=== PATIENT | female | born 1985 | race Caucasian/White ===

== ENCOUNTER 2019-12-01 14:08 | Emergency (ER) | payer MEDICARE, MEDICAID ==
[~2019-12-01] VITALS: Ht 152.4 cm; Wt 61.2 kg
--- NOTE | ~2019-12-01 | PROC ---
[address] [address] PROCEDURE REPORT Name: NALINI GUZMAN Room: [facility] Crow#: [id number] Admission: 12/01/19 Attend Phys: Discharge: 12/01/19 Date of : 87 Report #: [id number] THIS REPORT FOR: //name// cc: FAM - No family physician/PCP FAM - No family physician/PCP ~ THIS REPORT FOR: //name// For GI report, please see the Provation report in Perceptive 7 content. By: 0650Medical Records Staff KYUNG /MARISSA
[~2019-12-01 14:08] MED LIST: ALLERGEN EAR DR15 M1 OT; CLARITIN10 MG PO; DIFLUCAN150 MG PO; FLEXERIL PO; HYDROCODONE-AP1 EACH PO; IBUPROFEN 800800 M1 PO; LIORESAL 10 MG10 MG PO; MOBIC15 MG PO; MUCINEX D TABL1 EACH PO; MULTIVITAMINS; OMEPRAZOLE; PERCOCET 10-321 EACH; PROTONIX PO; PROTONIX40 M4 PO; QUASENSE1 EACH PO; TERAZOL 745 GM VG; VALIUM5 MG; XANAX 0.5 MG0.5 MG PO; XANAX XR0.5 MG; XANAX XR1 MG PO; ZPAK PO
[2019-12-01] MEDS ORDERED: PROPRANOLOL 1010 MG PO (14:22)
[2019-12-01] MEDS ORDERED: VALIUM5 MG PO (14:23)
[2019-12-01 14:48] LABS: ABSOLUTE BASOPHILS 0.1 thou/uL (0.0-0.2); ABSOLUTE EOSINOPHILS 0.2 thou/uL (0.0-0.7); ABSOLUTE LYMPHOCYTES 3.5 thou/uL (0.8-5.3); ABSOLUTE MONOCYTES 0.6 thou/uL (0.0-1.2); ABSOLUTE NEUTROPHILS 5.8 thou/uL (1.6-8.1); EOSINOPHILS 1.6 %; HEMATOCRIT 41.9 % (37.0-47.0); HEMOGLOBIN 14.3 gm/dL (12.0-15.0); LYMPHOCYTES 34.8 %; MCH 33.1 pg (26.0-34.0); MCHC 34.2 g/dL (28.0-37.0); MCV 96.8 fL (80.0-100.0); MONOCYTES 6.2 %; MPV 9.6 fl. (7.2-11.1); NUCLEATED RBCS 0 /100WBC; PLATELET COUNT* 319 thou/uL (150-400); POLYS 56.4 %; RBC 4.32 mil/uL (4.20-5.00); RDW-CV 13.1 % (10.5-14.5); WBC 10.2 thou/uL (4.0-11.0)
[2019-12-01 14:58] LABS: CALCIUM 8.2 mg/dL (8.5-10.1); CREATININE 1.2 mg/dL (0.6-1.3); POTASSIUM 3.6 mmol/L (3.5-5.1)
[2019-12-01 15:03] LABS: ALBUMIN 3.7 g/dL (3.4-5.0); TOTAL BILIRUBIN 0.4 mg/dL (<0.1-1.0); TOTAL PROTEIN 7.7 g/dL (6.4-8.2)
[2019-12-01 16:41] VITALS: BP 145/78
--- NOTE | 2019-12-02 09:31 | EKG ---
[place] [address] ELECTROCARDIOGRAM REPORT Name: NALINI GUZMAN Room: [facility]#: [id number] Admission: 12/01/19 Attend Phys: Discharge: 12/01/19 Date of : 87 Date of Service: 12/01/19 1429 Report #: [id number] THIS REPORT FOR: //name// [facility] ED Test Date: 2019-12-01 Test Time: 14:29:07 Pat Name: NALINI GUZMAN Department: Room: Gender: Room Service Supervisor: ZARI : 1985 Requested By: Stephen Levy Order Number: [id number] MD: Luis E Quevedo Measurements Intervals [place] Rate: 88 P: 50 NH: 118 QRS: 40 QRSD: 96 T: 15 QT: 385 QTc: 466 Interpretive Statements Sinus rhythm Borderline short NH interval Baseline wander in lead(s) V5 No previous ECG available for comparison Electronically Signed On 12-02-2019 9:31:21 CDT by Luis E Quevedo [email or web address] <ELECTRONICALLY SIGNED> By: Luis E Quevedo MD, [facility] 12/02/19 0931 1429 142 Luis E Quevedo MD, [facility] /EPI
--- NOTE | 2019-12-03 13:08 | PATH ---
[facility] [address] [place] [address] PATHOLOGY RPT PROCEDURE Name: NALINI GUZMAN Room: [facility] Crow#: [id number] Admission: 12/01/19 Date of : 87 Discharge: 12/01/19 Report #: [id number] Path Case #: [id number] [facility] Accession Number: [id number] . 01 Material submitted: . PART A: esophagus - ESOPHAGEAL BIOPSY AT 33CM FOR "ECTASIA". Modifiers: 33CM PART B: esophagus - ESOPHAGEAL BIOPSY AT 28CM FOR "ECTASIA". Modifiers: 28CM . 01 Clinical history: . FOOD BOLUS HIATAL HERNIA . 02 Diagnosis: A. Esophageal biopsy at 33 cm: - Mild chronic esophagitis typical of reflux. See comment. . B. Esophageal biopsy at 28 cm: - Moderate chronic esophagitis typical of reflux. See comment. . (AYANA:claire; 12/03/2019) MBR 12/03/2019 1024 Local . 02 Comment: In both specimens, eosinophils are at most rarely identified, averaging less than 2 per high-power field. (AYANA:arts manager; 12/03/2019) . 02 Electronically signed: . Alessandro Sherman MD, Pathologist NPI- [id number] . 01 Gross description: . A. The specimen is received in formalin, labeled "Ramírez [place], esophageal BX at 33 cm" and consists of a translucent fragment of pink tissue measuring 0.3 x 0.3 cm which is entirely submitted in A1. . B. The specimen is received in formalin, labeled "Ankit Nalini, esophageal BX at 28 cm" and consists of a few minute fragments of translucent pink tissue measuring 0.5 x 0.5 x 0.1 cm in aggregate which are entirely submitted in B1. (SDY; 12/02/2019) SYU/SYU 12/02/2019 1714 Local . 02 Pathologist provided ICD-10: K20.9 . [address] [place] [address] PATHOLOGY RPT PROCEDURE Name: NALINI GUZMAN Room: [facility]#: [id number] Admission: 12/01/19 Date of : 87 Discharge: 12/01/19 Report #: [id number] Path Case #: [id number] [facility] . [id number], [id number] Specimen Comment: A courtesy copy of this report has been sent to [phone] Specimen Comment: Report sent to Performed at: 01 [facility] [address], [place], [place] [id number] MD Nelson Rios MD Phone: [phone] Performed at: 02 [facility] [place] [address], [place], [place] [id number] MD Alessandro Sherman MD Phone: [phone]
== END 2019-12-01 16:44 | disposition still patient (30) ==
LOC: M.GI 14:08 → M.ERS 14:08 → M.GI 14:08 → M.ERS 16:44
PROVIDERS: Emergency Medicine Emergency Medical Services
DX: R13.10 Dysphagia, unspecified (principal); F41.9 Anxiety disorder, unspecified; F17.210 Nicotine dependence, cigarettes, uncomplicated; Z20.828 Contact with and (suspected) exposure to other viral communicable diseases; Z88.0 Allergy status to penicillin; Z88.1 Allergy status to other antibiotic agents; Z88.8 Allergy status to other drugs, medicaments and biological substances

== ENCOUNTER → 2019-12-06 | Outpatient (CLI) | payer MEDICARE, MEDICAID ==
[~2019-12-06] MED LIST changes: +PROPRANOLOL 1010 MG PO; +VALIUM5 MG PO
== END ==
LOC: M.RAD 08:26
PROVIDERS: ATTEND Internal Medicine Gastroenterology
DX: R13.10 Dysphagia, unspecified (principal)

== ENCOUNTER → 2019-12-10 | Outpatient (CLI) | payer MEDICARE, MEDICAID | LOC: M.RAD 11:00 | PROVIDERS: ATTEND Internal Medicine Gastroenterology | DX: R13.10 Dysphagia, unspecified (principal) ==